=== PATIENT | male | born 1965 | race Caucasian/White ===

== ENCOUNTER 2020-06-25 07:48 | Day surgery (SDC) | payer OTHER ==
[2020-06-18 09:32] LABS: BASOPHILS # (AUTO) 0.1 X10'3 (0-0.2); BASOPHILS % (AUTO) 1.2 % (0-1); EOSINOPHILS # (AUTO) 0.1 X10'3 (0-0.9); EOSINOPHILS % (AUTO) 2.4 % (0-6); LYMPHOCYTES # (AUTO) 1.4 X10'3 (1.1-4.8); LYMPHOCYTES % (AUTO) 26.4 % (21-51); MEAN CORPUSCULAR HEMOGLOBIN 30.4 PG (27.0-31.0); MEAN CORPUSCULAR HGB CONC 33.5 g/dL (33.0-36.5); MEAN CORPUSCULAR VOLUME 90.7 FL (78-98); MEAN PLATELET VOLUME 7.3 FL (7.4-10.4); MONOCYTES # (AUTO) 0.3 X10'3 (0-0.9); MONOCYTES % (AUTO) 6.3 % (2-12); NEUTROPHILS # (AUTO) 3.3 X10'3 (1.8-7.7); NEUTROPHILS % (AUTO) 63.7 % (42-75); PRE OP HEMATOCRIT 44.5 % (42.0-52.0); PRE OP HEMOGLOBIN 14.9 g/dL (14.0-17.9); PRE OP PLATELET COUNT 237 X10'3 (140-440); RED CELL DISTRIBUTION WIDTH 13.4 % (11.5-14.5)
[2020-06-18 09:43] LABS: PRE OP PROTIME 10.1 SECONDS (9.0-12.0)
[2020-06-18 09:50] LABS: ALBUMIN 3.8 G/DL (3.4-5.0); ALBUMIN/GLOBULIN RATIO 1.1 (1.1-1.5); ALKALINE PHOSPHATASE 60 IU/L (46-116); BLOOD UREA NITROGEN 17 MG/DL (7-18); BUN/CREATININE RATIO 17.3 (5.4-32.0); CALCIUM 9.2 MG/DL (8.5-10.1); CHLORIDE 105 MMOL/L (99-107); CREATININE 0.98 MG/DL (0.60-1.10); PRE OP ALT 30 U/L (30-65); PRE OP ANION GAP 7 (8-16); PRE OP AST 18 U/L (10-37); PRE OP BILIRUB, TOTAL 0.5 MG/DL (0.0-1.0); PRE OP GLUCOSE 101 MG/DL (70-104); PRE OP SODIUM 144 MMOL/L (135-145); TOTAL CARBON DIOXIDE 32.4 MMOL/L (24-32); TOTAL PROTEIN 7.2 G/DL (6.4-8.2); eGFR 79 ML/MIN
[~2020-06-25] VITALS: Ht 180.3 cm; Wt 84.7 kg
[2020-06-25] VITALS (14 sets, daily range): BP systolic 120–149; BP diastolic 71–92
[~2020-06-25 07:48] MED LIST: LIDOcaine 1% W/epiNEPHrine 1:100,000 20ml vial ONE; OLME-9 PO; cefTAZidime 1gm inj ONE; cocaine 4% topical solution 4ml bottle ONE; famotidine 20mg tablet PO ONE; losartan 50mg tablet PO ONE; mupirocin 2% ointment 22GM ONE; oxymetazoline 15 ML nasal spray NS ONE; oxymetazoline 15 ML nasal spray NS PRN; ringers solution, lacted 1,000 ML IV SCH
[2020-06-25] MEDS ORDERED: losartan 50mg tablet PO ONE (08:00)
[2020-06-25] MEDS ORDERED: propofol inj 20 ML IV ONE (08:12)
[2020-06-25] MEDS ORDERED: LIDOcaine 2% (20mg/ml) 5ml vial ONE (08:12)
[2020-06-25] MEDS ORDERED: fentaNYL/PF 50MCG/1 ML 2ML syringe ONE (08:12)
[2020-06-25] MEDS ORDERED: midazolam 2 mg/2 ml injection ONE (08:12)
[2020-06-25] MEDS ORDERED: ondansetron/PF 4mg/2ml inj IV PRN (08:20)
[2020-06-25] MEDS ORDERED: meperidine/PF 25mg/ml syringe IV PRN ×3 (08:20)
[2020-06-25] MEDS ORDERED: morphine 2 MG/ML inj. syringe IV PRN (08:20)
[2020-06-25] MEDS ORDERED: morphine 4 MG/ML inj SYRINge IV PRN (08:20)
[2020-06-25] MEDS ORDERED: proCHLORperazine 10 MG/2 ml inj IV PRN (08:20)
[2020-06-25] MEDS ORDERED: ringers solution, lacted 1,000 ML IV SCH (08:20)
[2020-06-25] MEDS ORDERED: LISI1TAB29 PO (08:21)
[2020-06-25] MEDS ORDERED: sevoflurane 250ml liquid IH ONE (09:03)
[2020-06-25] MEDS ORDERED: dexamethasone sod phosphate 10mg/ml inj ONE (09:03)
[2020-06-25] MEDS ORDERED: ceFAZolin 1000mg inj ONE ×3 (09:24)
[2020-06-25] MEDS ORDERED: ondansetron/PF 4mg/2ml inj ONE (09:25)
--- NOTE | 2020-06-25 10:41 | NUR ---
Received from OR via [facility], accompanied by Anesthesiologist DR FRAUSTO and report given by Anesthesiologist. PT DROWSY, NO S/S OF DISTRESS/DISCOMFORT, BILLY KHAN W/ALEJANDRO IN PLACE, CDI. Addendum: 06/25/20 at 1109 by Laine Liu RN Amended: Links added.
[2020-06-25] MEDS ORDERED: mupirocin 2% ointment 22GM TP SCH (12:15)
[2020-06-25] MEDS ORDERED: oxymetazoline 15 ML nasal spray NS SCH (12:15)
[2020-06-25] MEDS ORDERED: salt irrigation nasal spray 45 ML SPRAY NS PRN (12:20)
--- NOTE | 2020-06-25 12:51 | NUR ---
PT UP AND ABLE TO AMBULATE SAFELY, VOIDED X 2, TOLERATING FLUIDS. D/C INSTRUCTIONS GIVEN, GONE OVER AND DEMONSTRATED TO PT WHO VERBALIZED UNDERSTANDING. PT D/CD TO HOME VIA W/C TO PRIVATE VEHICLE W/O INCIDENT. Addendum: 06/25/20 at 1315 by Laine Liu RN Amended: Links added.
== END 2020-06-25 12:51 | disposition home or self-care (01) ==
LOC: PAS 07:48
PROVIDERS: ATTEND Otolaryngology
DX: J34.2 Deviated nasal septum (principal); J34.3 Hypertrophy of nasal turbinates; G47.30 Sleep apnea, unspecified; I10 Essential (primary) hypertension; Z88.0 Allergy status to penicillin; Z79.01 Long term (current) use of anticoagulants; Z79.899 Other long term (current) drug therapy; Z20.828 Contact with and (suspected) exposure to other viral communicable diseases; Z72.89 Other problems related to lifestyle; Z98.890 Other specified postprocedural states; Z79.82 Long term (current) use of aspirin
CPT/HCPCS: 30140; 30520; 36415; 80053; 82948; 85025; 85576; 85610; 85730; 87635; 93005; A6402; C9250; C9803; J0690; J0713; J1100; J2001; J2250; J2405; J2704; J3010; A4618; A7000; J7120